=== PATIENT | female | born 1980 | race Caucasian/White ===

== ENCOUNTER 2018-06-27 14:34 | Emergency (ER) | payer OTHER, SELFPAY ==
[2018-06-27 14:37] VITALS: BP 128/95; PULSE 72; RESP 22; TEMP 36.9; O2SAT 100; BMI 25.0
--- NOTE | 2018-06-27 14:43 | PC.NURSE ---
doubled over at triage, crying with tears. skin pink and warm
--- NOTE | 2018-06-27 14:59 | ED.ABDPAIN ---
HPI - Abdominal Pain <Evy Whitehead PA-C - Last Filed: 06/27/18 21:49> General Chief Complaint: Abdominal Pain Stated Complaint: ABD PAIN Time Seen by Provider: 06/27/18 14:56 Source: patient Mode of arrival: ambulatory Limitations: no limitations History of Present Illness HPI narrative: This 37-year-old female complains of acute onset of right upper abdominal pain earlier today. She states that she was going about her usual day the when this started. She did not lift anything heavy or do any new activity. She states that pain is severe, in the middle of her abdomen. She states that it is constant, however intermittently she will have a ?stab? that lasts about 30 sec or so, then eases up a little bit. She states there do not seem to be any alleviating features such as position. She states that she has a little bit of nausea, has not had vomiting. She denies any fever. She denies urinary symptoms. Normal bowel movement today. She states that she does not pain in the lower abdomen or pelvis. Related Data Home Medications Medication Instructions Recorded Confirmed ibuprofen 1 dose PO PRN PRN 06/27/18 06/27/18 Previous Rx's Medication Instructions Recorded ondansetron HCl [Zofran] 4 mg PO Q6-8H PRN #12 tab 06/27/18 oxycodone-acetaminophen [Percocet] 2 tab PO Q4-6H PRN #16 tab 06/27/18 Allergies Allergy/AdvReac Type Severity Reaction Status Date / Time No Known Drug Allergies Allergy Verified 06/28/18 12:18 Review of Systems <Evy Whitehead PA-C - Last Filed: 06/27/18 21:49> Review of Systems All systems reviewed & are unremarkable except as noted in HPI and below PFSH <Evy Whitehead PA-C - Last Filed: 06/27/18 21:49> Comment: EtOH 2/day, no street drugs Exam <MARC Pope Last Filed: 06/27/18 21:49> Narrative Exam Narrative: GENERAL APPEARANCE: Patient tearful, appears uncomfortable HEENT: PERRL, EOMI, no scleral icterus NECK: Supple LUNGS: Clear to auscultation bilaterally. HEART: Rate and rhythm regular, normal S1 and S2, no S3 or S4. ABDOMEN: Soft, nondistended, bowel sounds present x 4 quadrants, no masses palpable, tender from the epigastrium to the right upper quadrant. +De La Vega's. Right liver border palpable just below the costal margin. No rebound. No tenderness elsewhere over the abdomen or pelvis EXTREMITIES: No edema, no cyanosis DERMATOLOGIC: No jaundice or exanthem NEUROLOGIC: Alert and oriented with normal speech and coordination : Normal appearing external genitalia, no discharge. No uterine or left adnexal tenderness. Moderate tenderness over the right adnexa which feels enlarged versus the left Initial Vital Signs Initial Vital Signs: Vital Signs Temperature 98.4 F 06/27/18 14:37 Pulse Rate 72 06/27/18 14:37 Respiratory Rate 22 06/27/18 14:37 Blood Pressure 128/95 H 06/27/18 14:37 Pulse Oximetry 100 06/27/18 14:37 <Chino Steen DO - Last Filed: 06/28/18 13:45> Initial Vital Signs Initial Vital Signs: Vital Signs Temperature 98.4 F 06/27/18 14:37 Pulse Rate 72 06/27/18 14:37 Respiratory Rate 22 06/27/18 14:37 Blood Pressure 128/95 H 06/27/18 14:37 Pulse Oximetry 100 06/27/18 14:37 Course <Evy Whitehead PA-C - Last Filed: 06/27/18 21:49> Additional Information: Dr. Charles, radiologist reviewing patient's CT, called to advise on 7.5 cm teratoma. He advised did not think ultrasound would provide additional information. After reviewing with Dr. Steen we also did abdominal US to evaluate for stones or other pathology not seen on CT. The patient is feeling significantly improved prior to discharge. Able to ambulate and tolerate fluids. She states nausea is resolved. She still feels pressure, but not having severe pain. She will see Dr. Hay tomorrow, and agreed to return away if any acutely worsening symptoms prior to her appointment Orders Ordered: Discontinued Medications Al Hydrox/Mg Hydrox/Simethicone 20 ml/ Lidocaine HCl 15 ml 0 ml PO NOW ONE Stop: 06/27/18 15:09 Last Admin: 06/27/18 16:15 Dose: 35 ml Hydromorphone HCl (Dilaudid) 0.5 mg IV NOW ONE Stop: 06/27/18 15:09 Last Admin: 06/27/18 15:21 Dose: 0.5 mg Hydromorphone HCl (Dilaudid) 0.5 mg IV NOW ONE Stop: 06/27/18 17:09 Last Admin: 06/27/18 17:11 Dose: 0.5 mg Sodium Chloride (Normal Saline 0.9%) 500 mls @ 1,000 mls/hr IV BOLUS ONE Stop: 06/27/18 15:37 Last Infusion: 06/27/18 17:20 Dose: 0 mls/hr Admin: 06/27/18 15:22 Dose: 1,000 mls/hr Ketorolac Tromethamine (Toradol) 30 mg IV NOW ONE Stop: 06/27/18 15:09 Last Admin: 06/27/18 15:22 Dose: 30 mg Ondansetron HCl (Zofran) 4 mg IV NOW ONE Stop: 06/27/18 15:09 Last Admin: 06/27/18 15:23 Dose: 4 mg Pantoprazole Sodium (Protonix) 40 mg IV NOW ONE Stop: 06/27/18 15:09 Last Admin: 06/27/18 15:22 Dose: 40 mg Vital Signs - 8 hr 06/27/18 14:37 06/27/18 18:56 Temperature 98.4 F 97.6 F Pulse Rate 72 61 Respiratory Rate 22 16 Blood Pressure 128/95 H 131/74 Pulse Oximetry 100 100 <Chino Steen, - Last Filed: 06/28/18 13:45> Orders Ordered: Discontinued Medications Al Hydrox/Mg Hydrox/Simethicone 20 ml/ Lidocaine HCl 15 ml 0 ml PO NOW ONE Stop: 06/27/18 15:09 Last Admin: 06/27/18 16:15 Dose: 35 ml Hydromorphone HCl (Dilaudid) 0.5 mg IV NOW ONE Stop: 06/27/18 15:09 Last Admin: 06/27/18 15:21 Dose: 0.5 mg Hydromorphone HCl (Dilaudid) 0.5 mg IV NOW ONE Stop: 06/27/18 17:09 Last Admin: 06/27/18 17:11 Dose: 0.5 mg Sodium Chloride (Normal Saline 0.9%) 500 mls @ 1,000 mls/hr IV BOLUS ONE Stop: 06/27/18 15:37 Last Infusion: 06/27/18 17:20 Dose: 0 mls/hr Admin: 06/27/18 15:22 Dose: 1,000 mls/hr Ketorolac Tromethamine (Toradol) 30 mg IV NOW ONE Stop: 06/27/18 15:09 Last Admin: 06/27/18 15:22 Dose: 30 mg Ondansetron HCl (Zofran) 4 mg IV NOW ONE Stop: 06/27/18 15:09 Last Admin: 06/27/18 15:23 Dose: 4 mg Pantoprazole Sodium (Protonix) 40 mg IV NOW ONE Stop: 06/27/18 15:09 Last Admin: 06/27/18 15:22 Dose: 40 mg Vital Signs - 8 hr 06/27/18 14:37 06/27/18 18:56 Temperature 98.4 F 97.6 F Pulse Rate 72 61 Respiratory Rate 22 16 Blood Pressure 128/95 H 131/74 Pulse Oximetry 100 100 MDM - Abdominal Pain <Evy Whitehead PA-C - Last Filed: 06/27/18 21:49> Lab Data Attestation: I reviewed the patient's lab results. Result diagrams: 06/27/18 15:05 06/27/18 15:05 Lab Results 06/27/18 06/27/18 06/27/18 Range/Units 15:05 15:05 15:05 WBC 8.7 (4.5-11.0) X10^3/uL RBC 4.48 (4.0-5.2) X10^6/uL Hgb 13.7 (12.0-16.0) g/dL Hct 40.1 (36-46) % MCV 89.5 (80-100) fL MCH 30.6 (26-34) PG MCHC 34.2 (30-36) % RDW 12.6 (11.6-14.8) % Plt Count 264 (150-400) X10^3/uL Neut % (Auto) 72.2 (50-75) % Lymph % (Auto) 19.8 L (25-40) % Frederick % (Auto) 6.4 (3-14) % Eos % (Auto) 1.0 L (2-4) % Baso % (Auto) 0.6 (0-2) % Neut # (Auto) 6200 H (4607-1516) /uL Sodium 142 (137-145) mmol/L Potassium 4.3 (3.4-5.1) mmol/L Chloride 103 (98-107) mmol/L Carbon Dioxide 27 (22-32) mmol/L BUN 10 (7-17) mg/dL Creatinine 0.50 L (0.52-1.04) mg/dL Estimated GFR > 60.0 (>60) mL/min BUN/Creatinine Ratio 20.0 (6-22) Glucose 107 H (70-100) mg/dL Lactate 1.5 (0.7-2.1) mmol/L Calcium 9.3 (8.4-10.2) mg/dL Total Bilirubin 1.2 (0.2-1.3) mg/dL AST 45 H (14-36) IU/L ALT 17 (9-52) IU/L Alkaline Phosphatase 56 (38-126) U/L Total Protein 8.5 H (6.3-8.2) g/dL Albumin 4.9 (3.5-5.0) g/dL Globulin 3.6 (1.7-4.1) g/dL Albumin/Globulin Ratio 1.4 (1.0-2.8) Lipase 38 (23-300) U/L Point of care testing: Point of Care Testing Test Results Negative Urine Dip Bedside Urine Glucose Negative Bedside Urine Bilirubin - Negative Bedside Urine Ketone - Negative Urine Specific [place] 1.010 Bedside Urine Occult Blood - Negative Bedside Urine pH 8.0 Bedside Urine Protein - Negative Bedside Urine Urobilinogen - Negative Bedside Urine Nitrite - Negative Bedside Urine Leukocytes - Negative Esterase Imaging Data CT scan - abdomen: Radiologist's impression: [address] [id number] [address] Scan Report Signed Patient: CUCA MEMBRENO JMR#: [id number] : 1980Acct:[id number] Age/Sex: 37 / FDate of Service: 06/27/18 Loc: ED Accession Number: [id number] Procedure: CT abdomen pelvis w con Ordering Provider: Evy Whitehead P.A-C PROCEDURE: CT ABDOMEN PELVIS W CON INDICATIONS: RUQ, epigastric pain TECHNIQUE: After the administration of intravenous contrast, 5 mm thick sections acquired from the diaphragm to the symphysis. 5 mm coronal and sagittal reformats were acquired. For radiation dose reduction, the following was used: automated exposure control, adjustment of mA and/or kV according to patient size. COMPARISON: None. FINDINGS: Image quality: Excellent. ABDOMEN: Lung bases: Lung bases are clear. Heart size is normal. Solid organs: No focal hepatic lesions identified. Gallbladder appears within normal limits without calcified gallstones. Biliary system is non dilated. Pancreas enhances normally. Spleen is normal in size and enhancement. No adrenal nodules. Kidneys demonstrate normal size and enhancement, without hydronephrosis. Peritoneum and bowel: Bowel loops demonstrate normal wall thickness and caliber. The appendix is normal in appearance. There is a small amount of free fluid in the pelvis which appears within physiologic limits. No free air. Nodes and vessels: No retroperitoneal or mesenteric adenopathy by size criteria. Aorta and inferior vena cava are normal in size. Miscellaneous: No ventral hernias. PELVIS: Genitourinary: Bladder wall thickness is normal. Within the right adnexa, there is a heterogeneous mass containing fat, soft tissue, and calcification consistent with a teratoma. This measures up to 7.2 x 4.5 x 5.1 cm. The right ovary is otherwise not discretely visualized. The left ovary demonstrates a small lobulated fat density structure measuring up to 1.2 x 0.5 cm which may also represent a small teratoma. The uterus is prominent in size with a small amount of endometrial fluid likely representing physiologic changes. Miscellaneous: No inguinal hernias or adenopathy. Bones: No suspicious bony lesions. No vertebral body compression fractures. IMPRESSION: 1. Heterogeneous right adnexal mass containing fat, soft tissue, and calcification consistent with a teratoma. Given the size of the mass, patient may be at risk for ovarian torsion. Recommend correlation with clinical symptoms. Findings discussed with JESSICA Bolanos on 06/27/18 at 3:55 PM. Dictated by: Justus Charles M.D. on 06/27/2018 at 15:49 Approved by: Justus Charles M.D. on 06/27/2018 at 15:57 US - abdomen: Radiologist's impression: [address] [address] Ultrasound Report Signed Patient: CUCA MEMBRENO JMR#: [id number] : 1980Acct:[id number] Age/Sex: 37 / FDate of Service: 06/27/18 Loc: ED Accession Number: [id number] Procedure: US abdomen complete Ordering Provider: Evy Whitehead P.A-C PROCEDURE: US ABDOMEN COMPLETE INDICATIONS: R. UQ, epastric pain. TECHNIQUE: Real-time scanning was performed of the abdominal and retroperitoneal organs, with image documentation. COMPARISON: [facility], CT, CT ABDOMEN PELVIS W CON, 06/27/2018, 15:28. FINDINGS: Liver: Liver is normal in size and homogeneous in echotexture. Gallbladder: The gallbladder is collapsed at this time of this study, limiting its evaluation. No findings of gallstones or sludge are seen. The gallbladder wall is not thickened, measuring 3 mm or less. No specific pericholecystic fluid is seen. The sonographic De La Vega sign is negative. Biliary ducts: Intrahepatic bile ducts are non-dilated. Extrahepatic bile duct caliber measures 7 mm. Normal is 6-7 mm or less in diameter, or 10 mm or less post-cholecystectomy. Pancreas: Visualized portions of the pancreas are sonographically normal. Spleen: Spleen is normal in size and homogeneous in echotexture. Kidneys: Kidneys are normal in size and echotexture. Right kidney measures 11.5 cm long; left kidney measures 12.1 cm long. No hydronephrosis or nephrolithiasis. No solid masses. The renal cortex measures within normal limits for thickness. Aorta: Visualized aorta is normal in caliber at less than 3 cm. Iliacs: Proximal common iliac arteries are normal in caliber at less than 2.5 cm. IVC: Intrahepatic inferior vena cava is patent. Miscellaneous: No free abdominal fluid. IMPRESSION: Limited evaluation of the gallbladder, which is collapsed at the time of this study. No sonographic signs of cholecystitis. No biliary dilatation is seen. Note: Concordant preliminary findings given by the railroad car checker upon the completion of the examination to Evy Whitehead PA-C at 1735 hrs. [place] time on June 27, 2018. Dictated by: Wilson Robins M.D. on 06/27/2018 at 16:55 Approved by: Wilson Robins M.D. on 06/27/2018 at 16:56 <Chino Steen, DO - Last Filed: 06/28/18 13:45> Lab Data Lab Results 06/27/18 06/27/18 06/27/18 Range/Units 15:05 15:05 15:05 WBC 8.7 (4.5-11.0) X10^3/uL RBC 4.48 (4.0-5.2) X10^6/uL Hgb 13.7 (12.0-16.0) g/dL Hct 40.1 (36-46) % MCV 89.5 (80-100) fL MCH 30.6 (26-34) PG MCHC 34.2 (30-36) % RDW 12.6 (11.6-14.8) % Plt Count 264 (150-400) X10^3/uL Neut % (Auto) 72.2 (50-75) % Lymph % (Auto) 19.8 L (25-40) % Frederick % (Auto) 6.4 (3-14) % Eos % (Auto) 1.0 L (2-4) % Baso % (Auto) 0.6 (0-2) % Neut # (Auto) 6200 H (4692-3247) /uL Sodium 142 (137-145) mmol/L Potassium 4.3 (3.4-5.1) mmol/L Chloride 103 (98-107) mmol/L Carbon Dioxide 27 (22-32) mmol/L BUN 10 (7-17) mg/dL Creatinine 0.50 L (0.52-1.04) mg/dL Estimated GFR > 60.0 (>60) mL/min BUN/Creatinine Ratio 20.0 (6-22) Glucose 107 H (70-100) mg/dL Lactate 1.5 (0.7-2.1) mmol/L Calcium 9.3 (8.4-10.2) mg/dL Total Bilirubin 1.2 (0.2-1.3) mg/dL AST 45 H (14-36) IU/L ALT 17 (9-52) IU/L Alkaline Phosphatase 56 (38-126) U/L Total Protein 8.5 H (6.3-8.2) g/dL Albumin 4.9 (3.5-5.0) g/dL Globulin 3.6 (1.7-4.1) g/dL Albumin/Globulin Ratio 1.4 (1.0-2.8) Lipase 38 (23-300) U/L Point of care testing: Point of Care Testing Test Results Negative Urine Dip Bedside Urine Glucose Negative Bedside Urine Bilirubin - Negative Bedside Urine Ketone - Negative Urine Specific [place] 1.010 Bedside Urine Occult Blood - Negative Bedside Urine pH 8.0 Bedside Urine Protein - Negative Bedside Urine Urobilinogen - Negative Bedside Urine Nitrite - Negative Bedside Urine Leukocytes - Negative Esterase Discharge Plan Departure Patient Disposition: Home Clinical Impression: Teratoma of right ovary Discharge Date/Time: 06/27/18 18:58 Interventions: ED Discharge Assessment Last Done: 06/27/18 18:56 Instructions: DI for Ovarian Cyst Activity Restrictions/Additional Instructions: I have given you instructions for ovarian cyst because they are similar. You have a mass that appears benign on the ovary, but is likely causing your pain and will need to be removed at some point. Please rest tonight, take the pain and nausea medicine prescribed as needed (do not drive as that could make you sleepy), and see Dr. Hay from gynecology at her office tomorrow. You should take ibuprofen every 8 hr as well (800 mg) to help with pain. You need to return immediately as we talked about if you have any acutely worsening symptoms in the interim. Prescriptions: New ondansetron HCl [Zofran] 4 mg tablet 4 mg PO Q6-8H PRN (Reason: nausea and vomiting) Qty: 12 RF: 0 oxycodone-acetaminophen [Percocet] 5-325 mg tablet 2 tab PO Q4-6H PRN (Reason: pain) Qty: 16 RF: 0 No Action ibuprofen 200 mg Tablet 1 dose PO PRN PRN (Reason: Pain, Mild) RF: 0 Referrals: Ritika Hay MD [Physician] - <Chino Steen DO - Last Filed: 06/28/18 13:45> Cosign ED Attending Shekharature Attestation: I was immediately available in the department for consultation. Documentation has been reviewed. I agree with assessment and plan.
--- NOTE | 2018-06-27 15:09 | DI.CT.S_ITS ---
PROCEDURE: CT ABDOMEN PELVIS W CON INDICATIONS: RUQ, epigastric pain TECHNIQUE: After the administration of intravenous contrast, 5 mm thick sections acquired from the diaphragm to the symphysis. 5 mm coronal and sagittal reformats were acquired. For radiation dose reduction, the following was used: automated exposure control, adjustment of mA and/or kV according to patient size. COMPARISON: None. FINDINGS: Image quality: Excellent. ABDOMEN: Lung bases: Lung bases are clear. Heart size is normal. Solid organs: No focal hepatic lesions identified. Gallbladder appears within normal limits without calcified gallstones. Biliary system is non dilated. Pancreas enhances normally. Spleen is normal in size and enhancement. No adrenal nodules. Kidneys demonstrate normal size and enhancement, without hydronephrosis. Peritoneum and bowel: Bowel loops demonstrate normal wall thickness and caliber. The appendix is normal in appearance. There is a small amount of free fluid in the pelvis which appears within physiologic limits. No free air. Nodes and vessels: No retroperitoneal or mesenteric adenopathy by size criteria. Aorta and inferior vena cava are normal in size. Miscellaneous: No ventral hernias. PELVIS: Genitourinary: Bladder wall thickness is normal. Within the right adnexa, there is a heterogeneous mass containing fat, soft tissue, and calcification consistent with a teratoma. This measures up to 7.2 x 4.5 x 5.1 cm. The right ovary is otherwise not discretely visualized. The left ovary demonstrates a small lobulated fat density structure measuring up to 1.2 x 0.5 cm which may also represent a small teratoma. The uterus is prominent in size with a small amount of endometrial fluid likely representing physiologic changes. Miscellaneous: No inguinal hernias or adenopathy. Bones: No suspicious bony lesions. No vertebral body compression fractures. IMPRESSION: 1. Heterogeneous right adnexal mass containing fat, soft tissue, and calcification consistent with a teratoma. Given the size of the mass, patient may be at risk for ovarian torsion. Recommend correlation with clinical symptoms. Findings discussed with JESSICA Bolanos on 06/27/18 at 3:55 PM. Dictated by: Justus Charles M.D. on 06/27/2018 at 15:49 Approved by: Justus Charles M.D. on 06/27/2018 at 15:57
[2018-06-27 15:20] LABS: Add Manual Diff / Slide Review NO; Basophils Percent Auto 0.6 % (0-2); Hematocrit 40.1 % (36-46); Hemoglobin 13.7 g/dL (12.0-16.0); Lymphocytes Percent Auto 19.8 % (25-40); Mean Corpuscular HGB Conc 34.2 % (30-36); Mean Corpuscular Hemoglobin 30.6 PG (26-34); Mean Corpuscular Volume 89.5 fL (80-100); Monocytes Percent Auto 6.4 % (3-14); Neutrophils Absolute Auto 6200 /uL (3000-5900); Neutrophils Percent Auto 72.2 % (50-75); Platelet Count 264 X10^3/uL (150-400); Red Blood Cell Count 4.48 X10^6/uL (4.0-5.2); Red Cell Distribution Width 12.6 % (11.6-14.8); White Blood Cell Count 8.7 X10^3/uL (4.5-11.0)
[2018-06-27] MEDS: HYDROMORPHONE 1 MG INJ 0.5 MG IV ×2 (15:21→17:11)
[2018-06-27] MEDS: KETOROLAC 60 MG/2 ML VIAL 30 MG IV (15:22)
[2018-06-27] MEDS: SODIUM CHLORIDE 0.9% 500 ML 1000 ML IV (15:22)
[2018-06-27] MEDS: PANTOPRAZOLE 40 MG VIAL IV (15:22)
[2018-06-27] MEDS: ONDANSETRON 4 MG/2 ML INJ IV (15:23)
[2018-06-27 15:34] LABS: Alanine Aminotransferase 17 IU/L (9-52); Albumin 4.9 g/dL (3.5-5.0); Albumin Globulin Ratio 1.4 (1.0-2.8); Alkaline Phosphatase 56 U/L (38-126); Aspartate Aminotransferase 45 IU/L (14-36); Bilirubin Total 1.2 mg/dL (0.2-1.3); Blood Urea Nitrogen 10 mg/dL (7-17); Calcium 9.3 mg/dL (8.4-10.2); Carbon Dioxide 27 mmol/L (22-32); Chloride 103 mmol/L (98-107); Estimated Glomerular Filt Rate > 60.0 mL/min (>60); Globulin 3.6 g/dL (1.7-4.1); Glucose 107 mg/dL (70-100); Lipase 38 U/L (23-300); Potassium 4.3 mmol/L (3.4-5.1); Sodium 142 mmol/L (137-145); Total Protein 8.5 g/dL (6.3-8.2)
[2018-06-27 15:35] LABS: Lactate (Lactic Acid) 1.5 mmol/L (0.7-2.1)
[2018-06-27 15:43] LABS: HEMOLYSIS 191 (0-50)
[2018-06-27] MEDS: MAG HYDROX/ALUMINUM/SIMETH SUS 20 ML, LIDOCAINE VISCOUS 2% 15 ML PO (16:15)
--- NOTE | 2018-06-27 16:17 | DI.US.S_ITS ---
PROCEDURE: US ABDOMEN COMPLETE INDICATIONS: R. UQ, epastric pain. TECHNIQUE: Real-time scanning was performed of the abdominal and retroperitoneal organs, with image documentation. COMPARISON: [facility], CT, CT ABDOMEN PELVIS W CON, 06/27/2018, 15:28. FINDINGS: Liver: Liver is normal in size and homogeneous in echotexture. Gallbladder: The gallbladder is collapsed at this time of this study, limiting its evaluation. No findings of gallstones or sludge are seen. The gallbladder wall is not thickened, measuring 3 mm or less. No specific pericholecystic fluid is seen. The sonographic De La Vega sign is negative. Biliary ducts: Intrahepatic bile ducts are non-dilated. Extrahepatic bile duct caliber measures 7 mm. Normal is 6-7 mm or less in diameter, or 10 mm or less post-cholecystectomy. Pancreas: Visualized portions of the pancreas are sonographically normal. Spleen: Spleen is normal in size and homogeneous in echotexture. Kidneys: Kidneys are normal in size and echotexture. Right kidney measures 11.5 cm long; left kidney measures 12.1 cm long. No hydronephrosis or nephrolithiasis. No solid masses. The renal cortex measures within normal limits for thickness. Aorta: Visualized aorta is normal in caliber at less than 3 cm. Iliacs: Proximal common iliac arteries are normal in caliber at less than 2.5 cm. IVC: Intrahepatic inferior vena cava is patent. Miscellaneous: No free abdominal fluid. IMPRESSION: Limited evaluation of the gallbladder, which is collapsed at the time of this study. No sonographic signs of cholecystitis. No biliary dilatation is seen. Note: Concordant preliminary findings given by the fiberglass dowel drawing operator upon the completion of the examination to Evy Whitehead PA-C at 1735 hrs. [facility] on June 27, 2018. Dictated by: Wilson Robins M.D. on 06/27/2018 at 16:55 Approved by: Wilson Robins M.D. on 06/27/2018 at 16:56
[2018-06-27 18:56] VITALS: BP 131/74; PULSE 61; RESP 16; TEMP 36.4; O2SAT 100
== END 2018-06-27 18:58 | disposition home or self-care (01) ==
PROVIDERS: Emergency Provider Internal Medicine
DX: D27.0 Benign neoplasm of right ovary (principal)
CPT/HCPCS: 36591; 74177; 76700; 80053; 81003; 81025; 83605; 83690; 85025; 96361; 96374; 96375; 96376; 99283; 99285; C9113; J1170; J1885; J2405; Q9967